=== PATIENT | female | born 1975 | race Caucasian/White ===

== ENCOUNTER → 2023-09-01 16:03 | Outpatient (REF) | payer OTHER, SELFPAY | LOC: WDC 16:03 | PROVIDERS: ATTENDING PHYSICIAN Obstetrics & Gynecology; FAMILY PHYSICIAN Internal Medicine | DX: Z12.31 Encounter for screening mammogram for malignant neoplasm of breast (principal) | CPT/HCPCS: 77063; 77067 ==

== ENCOUNTER 2024-07-15 05:30 | Emergency (ER) | payer OTHER, SELFPAY ==
[2024-07-15 05:33] VITALS: BP 130/78
[2024-07-15 06:01] VITALS: BMI 31.4
[2024-07-15] MEDS: NSS 1000 IV (06:07)
[2024-07-15 06:11] LABS: Urine Albumin 3+ (Neg - Trace); Urine Bilirubin Negative (Negative); Urine Character Slightly Cloudy (Clear); Urine Color Yellow; Urine Glucose Negative (Negative); Urine Ketone Negative (Negative); Urine Leukocyte 1+ (Negative); Urine Nitrite Negative (Negative); Urine Occult Blood 4+ (Negative); Urine Urobilinogen Negative (Neg - 1+)
[2024-07-15] MEDS: ZOFRAN 4 MG IV (06:12)
[2024-07-15] MEDS: TORADOL 30 MG IV (06:12)
[2024-07-15 06:13] LABS: % Basophils 0.8 % (0-2); % Eosinophils 1.7 % (0-6); % Immature Granulocytes 0.3 % (0-0.5); % Lymphocytes 30.8 % (20.5-51.1); % Monocytes 4.8 % (1.7-9.3); % Neutrophils 61.6 % (42.2-75.2); Absolute Basophils 0.1 10^3/uL (0-0.2); Absolute Eosinophils 0.2 10^3/uL (0-0.7); Absolute Lymphocytes 3.3 10^3/uL (1.2-3.4); Absolute Monocytes 0.5 10^3/uL (0.1-0.6); Absolute Neutrophils 6.6 10^3/uL (1.4-6.5); Hematocrit 38.1 % (37.0-47.0); Hemoglobin 12.7 g/dL (12.0-16.0); Mean Corp Hgb Conc. 33.3 g/dL (33.0-37.0); Mean Corpuscular Hgb 27.3 pg (27.0-31.0); Mean Corpuscular Volume 81.8 fL (81.0-99.0); Nucleated Red Blood Cells % 0 %; Platelet Count 283 10^3/uL (130-400); Red Blood Cell Count 4.66 10^6/uL (4.20-5.40); Red Cell Dist. Width 12.9 % (11.5-14.5); White Blood Cell Count 10.8 10^3/uL (4.8-10.8)
[2024-07-15 06:17] VITALS: BP 119/60
[2024-07-15 06:20] VITALS: BP 119/60
[2024-07-15 06:23] LABS: HCG, Serum Qualitative Screen Negative
[2024-07-15 06:24] LABS: Urine Squamous Cell >30 /LPF (Few)
[2024-07-15 06:25] LABS: Urine Red Blood Cell >100 /HPF (0-2)
[2024-07-15 06:26] LABS: Urine Amorphous Seen; Urine Bacteria Moderate (Negative)
[2024-07-15 06:27] LABS: ALT (SGPT) 22 U/L (0-35); AST (SGOT) 23 U/L (14-36); Albumin 4.2 g/dl (3.5-5.0); Alkaline Phosphatase 89 U/L (38-126); Blood Urea Nitrogen 20 mg/dl (7-17); Calcium 9.4 mg/dl (8.4-10.2); Carbon Dioxide 22 mmol/L (22-30); Chloride 109 mmol/L (98-107); Estimated Creatinine Clearance 118 ml/min; Glucose 133 mg/dl (70-99); Potassium 3.7 mmol/L (3.5-5.1); Sodium 140 mmol/L (135-145); Total Bilirubin 0.6 mg/dl (0.2-1.3); Total Protein 7.2 g/dl (6.3-8.2); eGFR > 60.00
--- NOTE | 2024-07-15 06:31 | ED.GENMED ---
History of Present Illness
General
Chief Complaint: Flank Pain
Source: patient
Exam Limitations: none
Time Seen by Provider: 07/15/24 06:24
History of Present Illness
History of Present Illness:
49yoF with a prior history of kidney stones presenting for evaluation of left flank pain. Symptoms woke her up this morning at 4 AM. She states it feels like a knife is stabbing her. Pain radiates to the anterior abdomen. She is also
experiencing nausea and had about 6 episodes of vomiting so far. Symptoms feel similar to her prior kidney stone. She denies any fevers or urinary symptoms.
Past History
Past History
ED Past Medical History: None
ED Past Surgical History: None
Social History
Tobacco: Non-smoker
Alcohol: None
Drug: None
Living: with family
Employment: Employed
Family History
Family History: Other (Noncontributory)
Phy Exam
General Physical Exam
General Presentation: well appearing and no apparent distress
General age: appears stated age
General Skin: warm and dry
General Habitus: normal
General Mental: alert
ENT Exam
ENT Exam: normocephalic
Cardiovascular Exam
Cardiovascular Exam: regular rate/rhythm
Pulmonary Exam
Pulmonary Exam: lungs clear, no respiratory distress, no rales, no crackles and no rhonchi
Gastrointestinal Exam
Gastrointestinal Exam: soft, non distended and other (+Mild tenderness in LUQ. Abdomen soft, non-distended. No CVA tenderness. No rebound or guarding.)
Neurological Exam
Neurological Exam: alert
Sreekanth Coma Scale
Eye Opening: Spontaneous
Verbal Response: Oriented
Motor Response: Obeys Commands
GCS Total Score: 15
Skin Exam
Skin Exam: normal color and warm/dry
Psychiatric Exam
Psychiatric Exam: normal mood/affect
Course
Orders/Labs/Results
Orders:
Orders
04/13/25 05:50
Test Result ONCE
07/15/24 05:59
Complete Blood Count/With Diff Urgent
Comprehensive Metabolic Panel Urgent
HCG, Serum Qualitative Screen Urgent
Urine Culture Reflexed from UA [Urinalysis Reflex To Culture] Urgent
Date Specimen was Collected: 07/15/24
Time Specimen was Collected: 05:50
Urine Microscopic Reflex Cult Urgent
Urine Culture Urgent
JB Source: U
Specimen Description:
Date Specimen was Collected: 07/15/24
Time Specimen was Collected: 05:50
07/15/24 06:03
Ketorolac [Toradol] 30 mg .ROUTE .STK-MED ONE
07/15/24 06:04
Ondansetron Injectable [Zofran] 4 mg .ROUTE .STK-MED ONE
07/15/24 06:07
0.9% Sodium Chloride 1000 ml [Nss] 1,000 ml IV BOLUS
07/15/24 06:11
Ondansetron Injectable [Zofran] 4 mg IV NOW STA
07/15/24 06:12
Ketorolac [Toradol] 30 mg IV NOW STA
07/15/24 06:31
CT Abd/pel Without Iv Or Oral Urgent
Comment:
Reason For Exam: L flank pain
Abnormal Lab Results
07/15/24
05:59
Absolute Neuts (auto) 6.6 H 10^3/uL
(1.4-6.5)
Chloride 109 H mmol/L
(98-107)
BUN 20 H mg/dl
(7-17)
Glucose 133 H mg/dl
(70-99)
Ur Occult Blood Reflex 4+ A
(Negative)
Leukocyte Esterase Rfl 1+ A
(Negative)
Urine RBC >100 A /HPF
(0-2)
Urine Bacteria (Reflex) Moderate A
(Negative)
Urine Albumin (Reflex) 3+ A
(Neg - Trace)
07/15/24 05:59
07/15/24 05:59
Vital Signs
Initial and Last Documented VS:
Initial Vital Signs
Temp Pulse Resp BP Pulse Ox
98.1 F 98 18 130/78 97
07/15/24 05:33 07/15/24 05:33 07/15/24 05:33 07/15/24 05:33 07/15/24 05:33
Last Documented Vital Signs
Temp Pulse Resp BP Pulse Ox
98.1 F 70 20 119/60 98
07/15/24 05:33 07/15/24 06:20 07/15/24 06:20 07/15/24 06:20 07/15/24 06:20
MDM/Problems Addressed
Differential Diagnosis Includes:
49yoF here with L flank pain that woke her up from sleep this morning. +N/v. Hx of kidney stones and this feels the same. VSS. She received IV Toradol and Zofran prior to initial exam and she is currently feeling much better. No CVA tenderness
noted. Differential diagnosis includes but is not limited to: kidney stone, UTI, pyelonephritis, diverticulitis, musculoskeletal, doubt but consider AAA
Initial ED plan: Check CBC, CMP, HCG, UA, and CT abdomen without contrast. IV fluid bolus.
*Critical Care Note
Total Time (30-74mins, 75-104mins- exclusive of procedures): Not Applicable
Update Note
Update Note:
Labs overall unremarkable including normal creatinine. UA with >100 RBC without overt signs of infection. CT shows adjacent 2mm and 3mm calculi at the L UVJ with mild hydronephrosis. Pain is controlled on reassessment. No indication for
hospitalization. Supportive care discussed including hydration, urine straining, and Flomax. Prescription also given for Zofran. She declines prescription for oxycodone. Advised PRN Tylenol/ibuprofen for pain. Discussed importance of close
outpatient f/u with urology. ED return precautions discussed including uncontrolled pain and fevers. Patient in agreement with plan and was discharged in stable condition.
ED Attending Note
-
Portions of this chart may have been created with voice recognition software.� Occasional wrong word or��sound alike� substitutions may have occurred due to the inherent limitations of voice recognition software.
Discharge Plan
Departure
Patient Disposition: Home (Routine Discharge)
Date of Disposition: 07/15/24
Time of Disposition: 08:12
Patient with high blood pressure during this ER visit?: No
Discharge Problem:
Calculus of left ureter
Instructions: Kidney Stones (DC), How to Strain Your Urine
Prescriptions:
New
tamsulosin [Flomax] 0.4 mg capsule
0.4 mg PO HS Qty: 7 0RF
ondansetron 4 mg tablet,disintegrating
4 mg PO Q6H PRN (Reason: nausea and vomiting) Qty: 20 0RF
No Action
Zyrtec
10 mg PO DAILY
Referrals:
Valdo Barros MD [Active] -
UNKNOWN - PT DOES,NOT KNOW [Family Provider] -
Activity Restrictions/Additional Instructions:
Drink plenty of fluids. Strain your urine and take Flomax until stone has passed.
Take Tylenol 650 mg and ibuprofen 600 mg every 6 hours as needed for pain. Take Zofran as needed for nausea.
Please call tomorrow to schedule a follow-up with urology. Return to the ER with any new or worsening symptoms including uncontrolled pain or fevers.
Interventions
Interventions:
*Risk Screen - Suicide Last Done: 07/15/24 05:33
*General Assessment Last Done: 07/15/24 06:17
*Neglect/Abuse Screening Last Done: 07/15/24 06:17
*ED- Fall Risk Assessment Last Done: 07/15/24 06:17
*ED COVID-19 Vaccine History Last Done: 07/15/24 06:17
*Nursing Disposition Last Done: 07/15/24 08:34
QM-Rrvfzi-Roxnyhritr Assessment Last Done: 07/15/24 06:17
ED-Female Genitourinary Assessment Last Done: 07/15/24 06:17
Discharge Date and Time
Discharge Date/Time: 07/15/24 08:34
Print Language: CZECH
== END 2024-07-15 08:34 | disposition home or self-care (01) ==
LOC: EMR 05:30
PROVIDERS: Emergency Medicine; EMERGENCY PHYSICIAN Emergency Medicine
DX: N13.2 Hydronephrosis with renal and ureteral calculous obstruction (principal)
CPT/HCPCS: 96374; 96375; 96361; 99284; 74176; 80053; 81003; 81015; 84703; 85025; 87086

== ENCOUNTER → 2024-09-03 15:56 | Outpatient (REF) | payer OTHER, SELFPAY | LOC: WDC 15:56 | PROVIDERS: ATTENDING PHYSICIAN Obstetrics & Gynecology | DX: Z12.31 Encounter for screening mammogram for malignant neoplasm of breast (principal) | CPT/HCPCS: 77063; 77067 ==